=== PATIENT | female | born 1940 | race Caucasian/White ===

== ENCOUNTER 2016-08-04 07:21 | Day surgery (SDC) | payer MEDICARE ==
[2016-08-04] MEDS ORDERED: Lactated Ringers 1,000 ML IV SCH (07:45)
== END 2016-08-04 08:15 | disposition home or self-care (01) ==
LOC: FB.SDS 07:21
PROVIDERS: ATTEND Surgery
DX: Z53.8 Procedure and treatment not carried out for other reasons (principal)

== ENCOUNTER 2016-08-19 08:30 | Day surgery (SDC) | payer MEDICARE ==
[~2016-08-19 08:30] MED LIST: Lactated Ringers 1,000 ML IV SCH; Sodium Chloride 0.9% 10 ML Syringe FLUSH PRN
[2016-08-19] MEDS ORDERED: ePHEDrine 50 MG/ML SDV IV ONE (11:00)
[2016-08-19] MEDS ORDERED: fentaNYL 100 MCG/2 ML SDV IV ONE (11:00)
[2016-08-19] MEDS ORDERED: Ondansetron 4 MG/2 ML SDV IVPUSH ONE (11:00)
[2016-08-19] MEDS ORDERED: Ketorolac 30 MG/ML SDV IVPUSH ONE (11:00)
[2016-08-19] MEDS ORDERED: Dexamethasone 4 MG/ML 5 ML MDV IVPUSH ONE (11:00)
[2016-08-19] MEDS ORDERED: Albuterol 8 GM Inhaler INH ONE (11:00)
[2016-08-19] MEDS ORDERED: Propofol 200 MG/20 ML SDV IV ONE (11:00)
[2016-08-19] MEDS ORDERED: Bupivacaine 0.5% 30 ML SDV INJECT ONE (11:24)
[2016-08-19] MEDS ORDERED: Lidocaine 1% with EPINEPHrine 1:100,000 20 ML MDV INJECT ONE (11:24)
--- NOTE | 2016-08-19 11:52 | PCM.OPNOTE ---
- General Post-Op/Procedure Note Date of Surgery/Procedure: 08/19/16 Operative Procedure(s): right breast bx Findings: 4 cm mass Pre Op Diagnosis: right breast mass Post-Op Diagnosis: Same Anesthesia Technique: General ET tube, Local (10 ml 1 % lido with epi/0.5% buvipicaine) Primary Surgeon: Jose Mckeon Anesthesia Provider: Linwood Willoughby Pathology: right breast mass Complications: None Condition: Good Free Text/Narrative:: see dictation
--- NOTE | 2016-08-19 12:12 | OR ---
DATE OF OPERATION: 08/19/2016 SURGEON: Jose Mckeon MD PROCEDURE PERFORMED: Right breast biopsy. PREOPERATIVE DIAGNOSIS: Right breast mass. POSTOPERATIVE DIAGNOSIS: Right breast mass. INDICATIONS FOR PROCEDURE: This is a 76-year-old white female, who has a palpable mass at the 9 o'clock position of her right breast. Recent FNA demonstrated fibrosis and benign tissue; however, given the size of the lesion, an excisional biopsy was recommended to confirm that this was indeed benign. DESCRIPTION OF OPERATION: After an excellent general anesthetic was administered, the patient was prepped and draped in the usual sterile manner. The area over the mass was infiltrated with a 1:1 mixture of 1% lidocaine with epinephrine and 0.5% bupivacaine. A 5 cm radial incision was then made. Sharp and electrocautery dissection was carried out dissecting the mass from the surrounding tissue. Caudal, medial, and lateral axis were marked and the specimen was passed off the field and measured approximately 4 cm in diameter. The area was irrigated. Bleeding was controlled with electrocautery. The thinness of her breast tissue precluded subcu closure and the two skin edges were approximated with a running 4-0 nylon. Bulky dressing was then applied. The patient was taken to recovery room in good condition. /[id number] LUIS/[place]
[2016-08-19 14:14] VITALS: BP 125/65
== END 2016-08-19 14:10 | disposition home or self-care (01) ==
LOC: FB.SDS 08:30
PROVIDERS: ATTEND Surgery
PROC: 0HBT0ZX Excision of Right Breast, Open Approach, Diagnostic (ICD-10-PCS; principal; 2016-08-19)
DX: D05.11 Intraductal carcinoma in situ of right breast (principal); I48.1 Persistent atrial fibrillation; Z79.01 Long term (current) use of anticoagulants; Z79.899 Other long term (current) drug therapy; M19.90 Unspecified osteoarthritis, unspecified site; F03.90 Unspecified dementia, unspecified severity, without behavioral disturbance, psychotic disturbance, mood disturbance, and anxiety; E78.5 Hyperlipidemia, unspecified; M81.0 Age-related osteoporosis without current pathological fracture; Z88.1 Allergy status to other antibiotic agents; Z88.0 Allergy status to penicillin; Z88.8 Allergy status to other drugs, medicaments and biological substances
CPT/HCPCS: 00400; 19101; 88307; 88342; 88360; A9270; J1100; J1885; J2405; J2704; J3010; J7120

== ENCOUNTER 2016-12-14 14:53 | Emergency (ER) | payer MEDICARE ==
[2016-12-14] MEDS ORDERED: Acetaminophen 500 MG Tab PO ONE (15:06)
--- NOTE | 2016-12-14 15:13 | EDM.PDOC ---
ED HPI GENERAL MEDICAL PROBLEM - General Chief Complaint: Chest Pain Stated Complaint: CHEST PAIN Time Seen by Provider: 12/14/16 14:55 Source of Information: Reports: Patient, Family, Old Records History Limitations: Reports: No Limitations - History of Present Illness INITIAL COMMENTS - FREE TEXT/NARRATIVE: 76 yo female here with chest pain for the past week. Does not seem to be related to any activity. Was mild and intermittent initially, getting worse now 5/10 in severity. Has not been to her primary for this. No self tx. Mildly SOB. No nausea. No radiation. Quit smoking many yrs ago. PHx of pneumonia. Onset: Gradual Onset Date: 12/07/16 Duration: Day(s): Location: Reports: Chest Quality: Reports: Dull Severity: Mild Improves with: Reports: None Worsens with: Reports: None Associated Symptoms: Reports: Chest Pain, Shortness of Breath (mild). Denies: Cough, Diaphoresis, Fever/Chills, Loss of Appetite, Nausea/Vomiting, Rash Treatments TESTING AND REGULATING CHIEF: Reports: Other (see below) (none) whole chest Pain Score (Numeric/FACES): 5 - Related Data Allergies Allergy/AdvReac Type Severity Reaction Status Date / Time ciprofloxacin Allergy Rash Verified 12/14/16 15:01 oxybutynin Allergy UNKNOWN Verified 12/14/16 15:01 Penicillins Allergy Rash Verified 12/14/16 15:01 Sulfa (Sulfonamide Allergy Rash Verified 12/14/16 15:01 Antibiotics) Home Meds: Home Meds Albuterol [Proventil Neb Soln] 2.5 mg .XX QID PRN 06/09/16 [History] Alendronate [Fosamax] 70 mg PO Q7D@0600 06/09/16 [History] Ascorbate Calcium [Vitamin C] 1,000 mg PO DAILY 06/09/16 [History] Cholecalciferol (Vitamin D3) [Vitamin D3] 5,000 unit PO DAILY 06/09/16 [History] Flaxseed Oil [Flaxseed] 2,400 mg PO BID 06/09/16 [History] Omeprazole 20 mg PO DAILY 06/09/16 [History] Rivaroxaban [Xarelto] 20 mg PO WITHDINNER 06/09/16 [History] Sennosides/Docusate Sodium [Senna-Docusate Sodium] 2 tab PO DAILY 06/09/16 [ History] Sertraline [Zoloft] 200 mg PO DAILY 06/09/16 [History] Trospium [Sanctura] 20 mg PO BID 06/09/16 [History] Calcium Carbonate [Calcium] 600 mg PO DAILY 08/18/16 [History] Acetaminophen/HYDROcodone [[place] 325-5 MG] 1 - 2 tab PO Q6H PRN #20 tab [Rx] Hydrocodone/Acetaminophen [Hydrocodon-Acetaminophen 5-325] 1 each PO Q4HR PRN [History] Anastrozole [Arimidex] 1 mg PO DAILY 12/14/16 [History] traMADol [Ultram] 50 mg PO DAILY 12/14/16 [History] Past Medical History HEENT History: Reports: Cataract, Hard of Hearing, Impaired Vision, Other (See Below) Other HEENT History: CLEFT PALETTE Cardiovascular History: Reports: Afib Other Cardiovascular History: HYPERLIPIDEMIA Respiratory History: Reports: Asthma Other Respiratory History: USES IS AT HOME. 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 Other Musculoskeletal History: ARTROPATHY,BACKACHE Other Neuro History: TREMORS OF NERVOUS SYSTEM, DEMENTIA Psychiatric History: Reports: Dementia, Depression Hematologic History: Reports: None Immunologic History: Reports: None Oncologic (Cancer) History: Reports: None Dermatologic History: Reports: None - Infectious Disease History Infectious Disease History: Reports: Chicken Pox, Measles, Mumps - Past Surgical History HEENT Surgical History: Reports: Oral Surgery Musculoskeletal Surgical History: Reports: Arthroscopic Knee, Hip Replacement Social & Family History - Family History Family Medical History: Noncontributory - Tobacco Use Smoking Status *Q: Former Smoker Years of Tobacco use: 35 Packs/Tins Daily: 1 Second Hand Smoke Exposure: Yes - Caffeine Use Caffeine Use: Reports: Coffee, Soda - Recreational Drug Use Recreational Drug Use: No ED ROS GENERAL - Review of Systems Review Of Systems: See Below Constitutional: Denies: Fever, Chills, Night Sweats HEENT: Reports: No Symptoms Respiratory: Reports: Shortness of Breath (mild). Denies: Wheezing, Pleuritic Chest Pain, Cough, Sputum, Hemoptysis Cardiovascular: Reports: Chest Pain (5/10), Dyspnea on Exertion (slightly worse than usual), Palpitations (chronic Afib). Denies: Claudication, Edema, Lightheadedness, Orthopnea, PND, Syncope Endocrine: Reports: No Symptoms GI/Abdominal: Reports: No Symptoms : Reports: No Symptoms, Incontinence (not new) Musculoskeletal: Reports: No Symptoms Skin: Reports: No Symptoms Neurological: Reports: No Symptoms Psychiatric: Reports: No Symptoms ED EXAM, GENERAL - Physical Exam Exam: See Below Exam Limited By: No Limitations General Appearance: Alert, WD/WN, No Apparent Distress, Obese Eye Exam: Bilateral Eye: Normal Inspection Ears: Normal External Exam, Normal Canal, Hearing Grossly Normal Ear Exam: Bilateral Ear: Auricle Normal, Canal Normal Nose: Normal Inspection, Normal Mucosa, No Blood Throat/Mouth: Normal Inspection, Normal Lips, Normal Oropharynx, No Airway Compromise Head: Atraumatic, Normocephalic. No: Facial Swelling Neck: Normal Inspection Respiratory/Chest: No Respiratory Distress, Lungs Clear, Normal Breath Sounds, No Accessory Muscle Use Cardiovascular: No Edema, No JVD, Irregularly Irregular GI/Abdominal: Soft, Non-Tender, No Distention Back Exam: Normal Inspection. No: CVA Tenderness (R), CVA Tenderness (L) Extremities: Normal Inspection, Normal Range of Motion, Non-Tender, No Pedal Edema Neurological: Alert, Oriented, CN II-XII Intact, Normal Cognition, No Motor/ Sensory Deficits Psychiatric: Normal Affect, Normal Mood Skin Exam: Warm, Dry, Intact, Normal Color, No Rash Lymphatic: No Adenopathy EKG INTERPRETATION EKG Date: 12/14/16 Time: 15:00 Rhythm: A-Fib Rate (Beats/Min): 63 [place]: Normal P-Wave: Present QRS: Normal ST-T: Normal QT: Normal Comparison: NA - No Prior EKG Course - Vital Signs Text/Narrative:: CXR-no acute changes Acetaminophen 1000 mg po, Duoneb-subjective improvement Last Recorded V/S: Last Vital Signs Temp 36.9 C 12/14/16 14:53 Pulse 58 L 12/14/16 16:00 Resp 15 12/14/16 14:53 BP 103/65 12/14/16 14:53 Pulse Ox 95 12/14/16 16:00 - Orders/Labs/Meds Orders: Active Orders 24 hr Category Date Time Status Cardiac Monitoring [RC] .As Directed Care 12/14/16 14:55 Active Chest 2V [CR] Stat Exams 12/14/16 15:07 Taken UA W/MICROSCOPIC [URIN] Stat Lab 12/14/16 15:06 Uncollected EKG 12 Lead [EK] Routine Ther 12/14/16 14:55 Ordered Labs: Laboratory Tests 12/14/16 12/14/16 12/14/16 Range/Units 15:45 15:45 15:45 WBC 5.5 (4.5-12.0) X10-3/uL RBC 4.29 (3.23-5.20) x10(6)uL Hgb 13.6 (11.5-15.5) g/dL Hct 39.1 (30.0-51.3) % MCV 91.3 (80-96) fL MCH 31.7 (27.7-33.6) pg MCHC 34.7 (32.2-35.4) g/dL RDW 14.5 (11.5-15.5) % Plt Count 162 (125-369) X10(3)uL D-Dimer, Quantitative 130 (100-400) ng/mL Sodium 138 (135-145) mmol/L Potassium 3.5 (3.5-5.3) mmol/L Chloride 107 (100-110) mmol/L Carbon Dioxide 23 (23-29) mmol/L BUN 13 (8-23) mg/dL Creatinine 0.8 (0.6-1.3) mg/dL Est Cr Clr Drug Dosing 42.97 mL/min Estimated GFR (MDRD) > 60 (>60) BUN/Creatinine Ratio 16.3 (9-20) Glucose 187 H (80-116) mg/dL Calcium 9.3 (8.6-10.2) mg/dL Troponin I (0.02-0.06) NG/ML 12/14/16 Range/Units 15:45 WBC (4.5-12.0) X10-3/uL RBC (3.23-5.20) x10(6)uL Hgb (11.5-15.5) g/dL Hct (30.0-51.3) % MCV (80-96) fL MCH (27.7-33.6) pg MCHC (32.2-35.4) g/dL RDW (11.5-15.5) % Plt Count (125-369) X10(3)uL D-Dimer, Quantitative (100-400) ng/mL Sodium (135-145) mmol/L Potassium (3.5-5.3) mmol/L Chloride (100-110) mmol/L Carbon Dioxide (23-29) mmol/L BUN (8-23) mg/dL Creatinine (0.6-1.3) mg/dL Est Cr Clr Drug Dosing mL/min Estimated GFR (MDRD) (>60) BUN/Creatinine Ratio (9-20) Glucose (80-116) mg/dL Calcium (8.6-10.2) mg/dL Troponin I < 0.01 L (0.02-0.06) NG/ML Meds: Medications Discontinued Medications Generic Name Dose Route Start Last Admin Trade Name Donna PRN Reason Stop Dose Admin Acetaminophen 1,000 mg 12/14/16 15:06 12/14/16 15:12 Tylenol Extra Strength PO 12/14/16 15:07 1,000 mg ONETIME ONE Administration Albuterol/Ipratropium 3 ml 12/14/16 15:41 12/14/16 15:45 Duoneb 3.0-0.5 Mg/3 Ml NEB 12/14/16 15:42 3 ml ONETIME ONE Administration Departure - Departure Time of Disposition: 16:22 Disposition: Home, Self-Care 01 Condition: Good Clinical Impression: Bronchospasm, Hyperglycemia Forms: ED Department Discharge - My Orders Last 24 Hours: My Active Orders 12/14/16 14:55 Cardiac Monitoring [RC] .As Directed EKG 12 Lead [EK] Routine 12/14/16 15:06 UA W/MICROSCOPIC [URIN] Stat 12/14/16 15:07 Chest 2V [CR] Stat - Assessment/Plan Last 24 Hours: My Active Orders 12/14/16 14:55 Cardiac Monitoring [RC] .As Directed EKG 12 Lead [EK] Routine 12/14/16 15:06 UA W/MICROSCOPIC [URIN] Stat 12/14/16 15:07 Chest 2V [CR] Stat
[2016-12-14] MEDS ORDERED: Albuterol/Ipratropium 3.0-0.5 MG/3 ML Neb Soln NEB ONE (15:41)
[2016-12-14 16:40] VITALS: BP 102/54
--- NOTE | 2016-12-15 10:28 | CR ---
INDICATION: Short of breath, chest pain. CHEST: AP and lateral upright views of the chest 12/14/2016 were compared with 05/19/2016, revealing evidence of exogenous obesity. The heart is enlarged. The aorta is tortuous and calcified in the arch area. Overlying EKG lead snaps are noted. A definite active infiltrate or effusion was not identified. Somewhat diminished bone density is suggested, compatible with osteoporosis - correlate clinically. Slightly heavy markings at the lung bases are likely fibrotic, as they appear essentially unchanged from the previous study. IMPRESSION: No acute process. Fairly stable appearance of the chest compared with 05/19/2016. MTDD
== END 2016-12-14 16:39 | disposition home or self-care (01) ==
LOC: FB.ED 14:53
DX: J98.01 Acute bronchospasm (principal); R73.9 Hyperglycemia, unspecified; E78.5 Hyperlipidemia, unspecified; K21.9 Gastro-esophageal reflux disease without esophagitis; F32.9 Major depressive disorder, single episode, unspecified; Z98.890 Other specified postprocedural states; Z88.1 Allergy status to other antibiotic agents; Z88.8 Allergy status to other drugs, medicaments and biological substances; Z88.0 Allergy status to penicillin; Z88.2 Allergy status to sulfonamides; Z79.899 Other long term (current) drug therapy; Z87.891 Personal history of nicotine dependence
CPT/HCPCS: 36415; 71020; 80048; 84484; 85027; 85379; 93005; 94664; 99285; A9270; J7620; 99284

== ENCOUNTER 2017-06-01 16:05 | Emergency (ER) | payer MEDICARE ==
[2017-06-01 21:26] VITALS: BP 108/62
--- NOTE | 2017-06-02 10:28 | CT ---
INDICATION: 2 months of a headache, weakness, fatigue, dementia. CT HEAD WITHOUT CONTRAST: Serial contiguous 2.5 and 5-mm sections were obtained through the brain without contrast. Paranasal sinuses were well aerated. Mastoid air cells were minimally aerated and few in number. Degenerative changes are noted at the atlantoodontoid joint. No cranial abnormality was suggested. Calcifications are noted in the right vertebral artery and the internal carotid arteries. No shift of midline structures or ventricular abnormalities were identified. There is suggestion of some very minimal decreased density in the white matter, suggesting a minimal degree of microvascular disease. No other abnormal areas of density were identified - no bleeding site or hematoma was identified - no acute intracranial abnormality was suggested. IMPRESSION: 1. No acute intracranial abnormality. 2. Suggestion of minimal microvascular disease. 3. Arterial calcifications noted. If metastatic disease is suspected clinically, CT scan with IV contrast and/or MRI may be helpful. Report was called to Dr. Ochoa at 1825 hours, 06/01/2017. Total Exam DLP = 949.36 mGy-cm. MTDD
--- NOTE | 2017-06-02 10:33 | CR ---
INDICATION: Status post breast CA, tiredness, COPD. CHEST: PA and lateral views of the chest revealed the heart to be normal in size and shape. The aorta is somewhat tortuous with calcification in the arch. Findings compatible with COPD are noted, without a definite active infiltrate or effusion. Dextroconvex scoliosis at the thoracolumbar spine is noted. IMPRESSION: 1. No definite acute process. 2. COPD. 3. ASD aorta. 4. Scoliosis. Report was called to Dr. Ochoa at 1825 hours, 06/01/2017. MARLEN
--- NOTE | 2017-06-06 09:29 | ER ---
DATE SEEN: 06/01/2017 TIME SEEN: The patient was seen at 1630 hours. CHIEF COMPLAINT: Weakness, shortness of breath last 3-4 days, light rhinorrhea, occasional cough and headache. Denies fever. Has mild shortness of breath on walking 2 to 3 steps. History of bowel incontinence for a week. This is not unusual for her and she has urine incontinence also. Her granddaughter comes in once a week to do housework. notes she has mild dementia. He proudly claims he smoked "5 packs a day" for many years and, "I am healthy." He is rotund, approximately 300-pound man who does not complain of any aches and pains, but he is concerned about her history of mild dementia. She has lost several teeth. REVIEW OF SYSTEMS: 1. The patient has reflux. She uses omeprazole. 2. Depression. 3. Chronic pain. She uses tramadol. 4. Chronic obstructive lung disease with intermittent use of albuterol. 5. Fosamax for osteoporosis. 6. Arimidex for her dementia. MEDICATIONS: 1. Tramadol. 2. Sanctura. 3. Zoloft. 4. Senna and docusate. 5. Rivaroxaban. 6. Omeprazole. 7. Hydrocodone. 8. Flaxseed. 9. Vitamin D. 10.Calcium carbonate and Vitamin D. 11.Anastrozole (Arimidex). 12.Alendronate (Fosamax). ALLERGIES: Ciprofloxacin, oxybutynin, penicillin, sulfa. OTHER PAST MEDICAL HISTORY: 1. Right breast cancer resection many years ago. 2. Right total hip arthroplasty. 3. Left total knee arthroplasty. SOCIAL HISTORY: Smoked half-a-pack a day for 27 years. No history of hypothyroidism. Had cataract surgery. REVIEW OF SYSTEMS: The patient denies frequency, urgency, dysuria, hematuria. She notes she wears Attends. Has mild swelling of her ankles. PHYSICAL EXAMINATION: See nurse's notes for vital signs. Blood pressure 111/79, pulse 75, respirations 18, temperature 96.3, O2 sats 97%. CONSTITUTIONAL: The patient has many absent teeth, has an increased angularity of the jaw. She has a quiet and a very soft speech. I have to listen very closely because she talks so softly. She is mildly overweight. Her is a spokesperson for her. She is slow in speech and has fair eye contact. She is not confused, but she talks slowly and her answers come slowly. HEENT: Pupils equal, round, they do react to light. EOMs normal. Pharynx without abnormality. Mild dry mucosa. Has multiple missing teeth. NECK: No bruits in the neck. No cervical adenopathy. No thyromegaly. Neck is nontender posterior or anteriorly. No masses. No tracheal tug. LUNGS: Clear without rales, rhonchi, or wheezes. HEART: S1, S2. No irregular rate or rhythm. No murmur. ABDOMEN: Soft, nontender. No guarding. No abdominal discomfort. BACK: Without tenderness. No CVA or percussion tenderness. LOWER EXTREMITIES: Without edema. Deep tendon reflexes hypoactive in upper and lower extremities, but present. NEUROLOGICAL: Cranial nerves 2 through 12 intact. Gait appropriate. Not wide-based. Muscle strength in upper and lower extremities is good. Short-term memory is fair. Long-term memory is much better. 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 She has no evidence for metabolic abnormality. The hemoglobin is 14.4, white count 6000 with normal differential, and 4 basophils, slightly elevated. Sodium 142, potassium 4.3, chloride 107, CO2 of 29, BUN 20, creatinine 1.1. Estimated GFR is 48 (chronic kidney disease, stage III). BNP was 2181. Remainder of the TSH is 0.79, is normal. She has positive nitrites in urine, large leukocyte esterase, moderate squamous cells, many bacteria, and 40-50 wbc's. ASSESSMENT: 1. The patient has asymptomatic bacteriuria. I do not think she has a urinary tract infection. She has incontinence of urine. 2. 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 3. Chest x-ray did not reveal any masses or infiltrate. CT of the head did not demonstrate CVA or bleed. She has small-vessel changes otherwise. 4. Her speech is slightly delayed and slowed, suggests the abnormality of dementia which her notes. 5. No evidence for hypothyroidism. 6. Shortness of breath, etiology indeterminate, probably secondary to chronic obstructive lung disease and approximately 14-pack years of smoking. 7. The BNP is 2000+ and this suggests mild congestive heart failure. 8. She has incontinence of urine. 9. Has cataracts. 10.She has pain at the bottom of her feet. This suggests she has peripheral artery disease - atherosclerosis. 11.Regarding asymptomatic bacteriuria: Klebsiella on urine culture 06/03/2017- conclusion as long as she is asymptomatic do not treat. The incontinence would be the issue of UTI induced incontinence if it was acute, but the incontinence is chronic, so I still choose to not treat. Treatment may increase opportunity for more resistant organisms. PLAN: Trial of Imdur 30 mg daily. Follow up with her doctor in a week and she was informed about the results of her tests. /[id number] JENNIFER/[place]
== END 2017-06-01 18:58 | disposition home or self-care (01) ==
LOC: FB.ED 16:05
DX: G20 Parkinson's disease (principal); F02.80 Dementia in other diseases classified elsewhere, unspecified severity, without behavioral disturbance, psychotic disturbance, mood disturbance, and anxiety; R82.71 Bacteriuria; R32 Unspecified urinary incontinence; R06.02 Shortness of breath; M79.672 Pain in left foot; M79.671 Pain in right foot; Z88.1 Allergy status to other antibiotic agents; Z88.0 Allergy status to penicillin; Z88.2 Allergy status to sulfonamides; Z87.891 Personal history of nicotine dependence; Z98.49 Cataract extraction status, unspecified eye
CPT/HCPCS: 36415; 70450; 71046; 80053; 81001; 83880; 84443; 85025; 87086; 87088; 87186; 99285

== ENCOUNTER 2017-09-24 13:35 | Emergency (ER) | payer MEDICARE ==
--- NOTE | 2017-09-24 16:42 | ER ---
DATE SEEN: 09/24/2017 The patient left before seeing. She eloped. She presented with symptoms of shortness of breath, and has atrial fibrillation. The patient eloped. /[id number] JENNIFER/[place]
[2017-09-24 17:22] VITALS: BP 117/75
== END 2017-09-24 15:10 | disposition left against medical advice (07) ==
LOC: FB.ED 13:35
DX: Z53.21 Procedure and treatment not carried out due to patient leaving prior to being seen by health care provider (principal)
CPT/HCPCS: 93005

== ENCOUNTER 2018-10-17 07:48 | Day surgery (SDC) | payer MEDICARE ==
[2018-10-17] MEDS ORDERED: fentaNYL 100 MCG/2 ML SDV IV ONE (07:49)
[2018-10-17] MEDS ORDERED: Midazolam 1 MG/ML 2 ML SDV IV ONE (07:49)
[2018-10-17] MEDS ORDERED: Lactated Ringers 1,000 ML IV PRN (08:00)
[2018-10-17] MEDS: Sodium Chloride 0.9% 10 ML Syringe FLUSH PRN (08:40)
[2018-10-17 10:39] VITALS: BP 110/58
--- NOTE | 2018-10-17 14:35 | OR ---
DATE OF OPERATION: 10/17/2018 SURGEON: Karma Romero MD PREOPERATIVE DIAGNOSIS: Visually significant cataract, right eye. POSTOPERATIVE DIAGNOSIS: Visually significant cataract, right eye. PROCEDURES PERFORMED: Phacoemulsification with intraocular lens placement, right eye. ASSISTANTS: None. ANESTHESIA: Local with sedation. FINDINGS: Loose zonules. COMPLICATIONS: None. BLOOD LOSS: None. IMPLANTS: 24.5 diopter lens implanted. CDE: 9.44. DESCRIPTION OF PROCEDURE: After risks and benefits were reviewed with the patient, consent was obtained in the preoperative area, and the operative eye was marked with a surgical pen. In the preoperative area, a pledget was used to dilate the pupil consisting of a mixture of phenylephrine 10%, cyclopentolate 2%, moxifloxacin 0.5%, and bupivacaine 0.75%. The patient was taken to the operating room, where a time-out was performed, and the patient was placed under monitored anesthesia care. Topical tetracaine was used for anesthesia. The operative eye was prepped and draped for ophthalmic surgery, and the microscope was brought into position and focussed. A paracentesis incision was made, followed by injection of preservative-free 1% lidocaine into the anterior chamber, followed by injection of Viscoat into the anterior chamber. A microkeratome blade was used to make a corneal limbal incision temporarily. A cystotome was used to make the beginning of the capsulorrhexis, which was carried around 360 degrees in a curvilinear fashion using Utrata forceps. A Stone cannula with BSS was used to hydrodissect and hydro-delineate the nucleus. The nucleus was removed in a divide and conquer manner using phacoemulsification. Irrigation and aspiration were used to remove the remaining cortical material. Provisc was used to inflate the capsular bag, and a pre-loaded 24.5 diopter lens, serial number [id number], was injected into the capsular bag. A Sinskey hook was used to position and center the lens. Next, irrigation and aspiration was used to remove any remaining viscoelastic and cortical material from the anterior chamber. BSS on a cannula was used to inflate the anterior chamber and hydrate the wound. The wound was checked and found to be watertight. Drapes were removed and the eye was cleaned. A drop of brimonidine 0.15% and a drop of TobraDex was placed. The eye was shielded, and the patient was taken to the recovery room in stable condition. /[id number] DIANA/[place] CC: CINDA RICHTER MD MTDD
== END 2018-10-17 10:42 | disposition home or self-care (01) ==
LOC: FB.SDS 07:48
PROVIDERS: ATTEND Ophthalmology
DX: H25.813 Combined forms of age-related cataract, bilateral (principal); H04.123 Dry eye syndrome of bilateral lacrimal glands; H35.369 Drusen (degenerative) of macula, unspecified eye; H43.393 Other vitreous opacities, bilateral; H52.209 Unspecified astigmatism, unspecified eye; I48.1 Persistent atrial fibrillation; J45.20 Mild intermittent asthma, uncomplicated; J43.1 Panlobular emphysema; F03.91 Unspecified dementia, unspecified severity, with behavioral disturbance; K21.9 Gastro-esophageal reflux disease without esophagitis; F33.1 Major depressive disorder, recurrent, moderate; F41.9 Anxiety disorder, unspecified; G25.81 Restless legs syndrome; G89.29 Other chronic pain; M54.5 Low back pain; M51.36 Other intervertebral disc degeneration, lumbar region; M17.11 Unilateral primary osteoarthritis, right knee; M19.072 Primary osteoarthritis, left ankle and foot; M19.071 Primary osteoarthritis, right ankle and foot; Z88.0 Allergy status to penicillin; Z88.8 Allergy status to other drugs, medicaments and biological substances; Z88.1 Allergy status to other antibiotic agents; Z87.891 Personal history of nicotine dependence; Z79.01 Long term (current) use of anticoagulants; Z79.899 Other long term (current) drug therapy
CPT/HCPCS: 00142-QZ; J2250; J3010

== ENCOUNTER 2018-11-14 07:10 | Day surgery (SDC) | payer MEDICARE ==
[2018-11-14] MEDS ORDERED: fentaNYL 100 MCG/2 ML SDV IV ONE (07:11)
[2018-11-14] MEDS ORDERED: Midazolam 1 MG/ML 2 ML SDV IV ONE (07:11)
[2018-11-14] MEDS ORDERED: Lactated Ringers 1,000 ML IV PRN (07:30)
[2018-11-14] MEDS ORDERED: Sodium Chloride 0.9% 10 ML Syringe FLUSH PRN (07:30)
[2018-11-14 09:55] VITALS: BP 128/74; PULSE 66
--- NOTE | 2018-11-14 14:19 | OR ---
DATE OF OPERATION: 11/14/2018 SURGEON: Karma Romero MD PREOPERATIVE DIAGNOSIS: Visually significant cataract, left eye. POSTOPERATIVE DIAGNOSIS: Visually significant cataract, left eye. PROCEDURES PERFORMED: Phacoemulsification with intraocular lens placement, left eye. ASSISTANTS: None. ANESTHESIA: Local with sedation. COMPLICATIONS: None. BLOOD LOSS: None. IMPLANTS: Arley [id number], 24.0 diopter lens implanted. CDE: 5.07. DESCRIPTION OF PROCEDURE: After risks and benefits were reviewed with the patient, consent was obtained in the preoperative area, and the operative eye was marked with a surgical pen. In the preoperative area, a pledget was used to dilate the pupil consisting of a mixture of phenylephrine 10%, cyclopentolate 2%, moxifloxacin 0.5%, and bupivacaine 0.75%. The patient was taken to the operating room, where a time-out was performed, and the patient was placed under monitored anesthesia care. Topical tetracaine was used for anesthesia. The operative eye was prepped and draped for ophthalmic surgery, and the microscope was brought into position and focussed. A paracentesis incision was made, followed by injection of preservative-free 1% lidocaine into the anterior chamber, followed by injection of Viscoat into the anterior chamber. A microkeratome blade was used to make a corneal limbal incision temporarily. A cystotome was used to make the beginning of the capsulorrhexis, which was carried around 360 degrees in a curvilinear fashion using Utrata forceps. A Stone cannula with BSS was used to hydrodissect and hydrodelineate the nucleus. The nucleus was removed in a divide and conquer manner using phacoemulsification. Irrigation and aspiration were used to remove the remaining cortical material. Provisc was used to inflate the capsular bag, and a pre-loaded Arley AU00T0, 24.0 diopter lens, serial number [id number] was injected into the capsular bag. A Sinskey hook was used to position and center the lens. Next, irrigation and aspiration was used to remove any remaining viscoelastic and cortical material from the anterior chamber. BSS on a cannula was used to inflate the anterior chamber and hydrate the wound. The wound was checked and found to be watertight. 1 mg of Moxifloxacin was injected into the anterior chamber. Drapes were removed and the eye was cleaned. A drop of brimonidine 0.15% and a drop of TobraDex was placed. The eye was shielded, and the patient was taken to the recovery room in stable condition. /[id number] DIANA/[place] CC: LUCY Chapin
== END 2018-11-14 10:20 ==
LOC: FB.SDS 07:10
PROVIDERS: ATTEND Ophthalmology
DX: H25.12 Age-related nuclear cataract, left eye (principal); H52.4 Presbyopia; H04.123 Dry eye syndrome of bilateral lacrimal glands; H35.369 Drusen (degenerative) of macula, unspecified eye; H52.209 Unspecified astigmatism, unspecified eye; H43.393 Other vitreous opacities, bilateral; I48.1 Persistent atrial fibrillation; C50.411 Malignant neoplasm of upper-outer quadrant of right female breast; E78.5 Hyperlipidemia, unspecified; J45.909 Unspecified asthma, uncomplicated; K21.9 Gastro-esophageal reflux disease without esophagitis; G20 Parkinson's disease; F02.80 Dementia in other diseases classified elsewhere, unspecified severity, without behavioral disturbance, psychotic disturbance, mood disturbance, and anxiety; F32.9 Major depressive disorder, single episode, unspecified; Z88.0 Allergy status to penicillin; Z88.1 Allergy status to other antibiotic agents; Z88.8 Allergy status to other drugs, medicaments and biological substances; Z98.42 Cataract extraction status, left eye; Z96.1 Presence of intraocular lens; Z87.891 Personal history of nicotine dependence; Z79.01 Long term (current) use of anticoagulants; Z79.899 Other long term (current) drug therapy
CPT/HCPCS: 00142; 66984; J2250; J3010; V2632

== ENCOUNTER 2022-04-24 23:19 | Inpatient (IN) | payer MEDICARE ==
[2022-04-24] MEDS ORDERED: Sodium Chloride 0.9% 1,000 ML IV SCH (23:45)
[2022-04-25] MEDS ORDERED: Ondansetron 4 MG/2 ML SDV IVPUSH ONE (00:06)
[2022-04-25 00:35] LABS: ESTIMATED GFR 32 mL/min (>60)
[2022-04-25] MEDS ORDERED: cefTRIAXone 1 GM Vial IVPUSH STA (00:57)
[2022-04-25] MEDS ORDERED: Ondansetron 4 MG/2 ML SDV IV PRN (01:22)
[2022-04-25] MEDS: Sodium Chloride 0.9% 1,000 ML IV SCH ×2 (05:05→15:51)
[2022-04-25] MEDS: Azithromycin 500 MG in Sodium Chloride 0.9% 250 ML IV SCH (09:16)
[2022-04-25] MEDS: Acetaminophen 500 MG Tab PO SCH ×3 (13:01→20:03)
[2022-04-25] MEDS: Donepezil 10 MG Tab PO SCH (20:03)
[2022-04-25] MEDS: Carbidopa/Levodopa 25-100 MG Tab PO SCH (20:03)
[2022-04-25] MEDS: Mirtazapine 15 MG Tab PO SCH (20:03)
[2022-04-25] MEDS: VORTIOXETINE 10 MG PO SCH (20:09)
[2022-04-26] MEDS: Sodium Chloride 0.9% 1,000 ML IV SCH (01:53)
[2022-04-26 06:57] LABS: ESTIMATED GFR 50 mL/min (>60)
[2022-04-26] MEDS: cefTRIAXone 1 GM Vial IVPUSH SCH (08:51)
[2022-04-26] MEDS: Spironolactone 50 MG Tab PO SCH (08:52)
[2022-04-26] MEDS: Carbidopa/Levodopa 25-100 MG Tab PO SCH ×4 (08:52→20:14)
[2022-04-26] MEDS: Acetaminophen 500 MG Tab PO SCH ×4 (08:52→20:16)
[2022-04-26] MEDS: Furosemide 40 MG Tab PO SCH (08:52)
[2022-04-26] MEDS ORDERED: 50% Dextrose in Water 50 ML Syringe IVPUSH PRN (08:54)
[2022-04-26] MEDS ORDERED: Glucagon,Human Recombinant 1 MG Vial IM PRN (08:54)
[2022-04-26] MEDS ORDERED: Diclofenac Sodium 1% Gel 100 GM Tube TOP PRN (08:56)
[2022-04-26] MEDS ORDERED: Polyethylene Glycol 3350 Powder 17 GM Packet PO PRN (08:56)
[2022-04-26] MEDS ORDERED: Carbamide Peroxide 6.5% Otic Soln 15 ML Bottle EARBOTH PRN (08:56)
[2022-04-26] MEDS: Azithromycin 500 MG in Sodium Chloride 0.9% 250 ML IV SCH (08:57)
[2022-04-26] MEDS ORDERED: Tamoxifen 10 MG Tab PO SCH (09:00)
[2022-04-26] MEDS: Carboxymethylcellulose Sodium 0.5% Ophth Soln 15 ML Bottle EYEBOTH SCH ×2 (09:26→20:13)
[2022-04-26] MEDS: metFORMIN 1,000 MG Tab PO SCH ×2 (10:28→17:18)
[2022-04-26] MEDS: Insulin Lispro 100 Unit/ML 3 ML KwikPen SUBCUT SCH ×3 (10:29→17:44)
[2022-04-26] MEDS ORDERED: Rivaroxaban 15 MG Tab PO SCH (16:00)
[2022-04-26] MEDS: Rivaroxaban 15 MG Tab PO SCH (17:07)
[2022-04-26] MEDS: Donepezil 10 MG Tab PO SCH (20:13)
[2022-04-26] MEDS: Mirtazapine 15 MG Tab PO SCH (20:14)
[2022-04-26] MEDS: VORTIOXETINE 10 MG PO SCH (20:15)
[2022-04-27 06:26] LABS: ESTIMATED GFR 56 mL/min (>60)
[2022-04-27] MEDS: metFORMIN 1,000 MG Tab PO SCH ×2 (08:51→18:07)
[2022-04-27] MEDS: Acetaminophen 500 MG Tab PO SCH ×4 (08:52→20:21)
[2022-04-27] MEDS: Spironolactone 50 MG Tab PO SCH (08:52)
[2022-04-27] MEDS: Carboxymethylcellulose Sodium 0.5% Ophth Soln 15 ML Bottle EYEBOTH SCH ×2 (08:53→20:17)
[2022-04-27] MEDS: Carbidopa/Levodopa 25-100 MG Tab PO SCH ×4 (08:53→20:21)
[2022-04-27] MEDS: Furosemide 40 MG Tab PO SCH (08:53)
[2022-04-27] MEDS: Insulin Lispro 100 Unit/ML 3 ML KwikPen SUBCUT SCH ×3 (08:54→18:05)
[2022-04-27] MEDS ORDERED: Sodium Chloride 0.9% 10 ML Syringe FLUSH PRN (08:55)
[2022-04-27] MEDS: cefTRIAXone 1 GM Vial IVPUSH SCH (08:56)
[2022-04-27] MEDS: Azithromycin 500 MG in Sodium Chloride 0.9% 250 ML IV SCH (09:06)
[2022-04-27] MEDS: Rivaroxaban 15 MG Tab PO SCH (15:28)
[2022-04-27] MEDS: Potassium Chloride 20 MEQ Tab.ER PO SCH (20:20)
[2022-04-27] MEDS: Mirtazapine 15 MG Tab PO SCH (20:20)
[2022-04-27] MEDS: Donepezil 10 MG Tab PO SCH (20:20)
[2022-04-27] MEDS: VORTIOXETINE 10 MG PO SCH (20:22)
[2022-04-28 06:54] LABS: ESTIMATED GFR 56 mL/min (>60)
[2022-04-28] MEDS: Insulin Lispro 100 Unit/ML 3 ML KwikPen SUBCUT SCH ×3 (08:12→18:04)
[2022-04-28] MEDS: metFORMIN 1,000 MG Tab PO SCH ×2 (08:12→18:05)
[2022-04-28] MEDS: Acetaminophen 500 MG Tab PO SCH ×4 (08:23→21:10)
[2022-04-28] MEDS: Carbidopa/Levodopa 25-100 MG Tab PO SCH ×4 (08:23→21:11)
[2022-04-28] MEDS: Spironolactone 50 MG Tab PO SCH (08:23)
[2022-04-28] MEDS: Furosemide 40 MG Tab PO SCH (08:23)
[2022-04-28] MEDS: cefTRIAXone 1 GM Vial IVPUSH SCH (08:24)
[2022-04-28] MEDS: Carboxymethylcellulose Sodium 0.5% Ophth Soln 15 ML Bottle EYEBOTH SCH ×2 (08:24→21:09)
[2022-04-28] MEDS: Rivaroxaban 15 MG Tab PO SCH (15:47)
[2022-04-28] MEDS: VORTIOXETINE 10 MG PO SCH (21:08)
[2022-04-28] MEDS: Potassium Chloride 20 MEQ Tab.ER PO SCH (21:09)
[2022-04-28] MEDS: Cefdinir 300 MG Cap PO SCH (21:09)
[2022-04-28] MEDS: Donepezil 10 MG Tab PO SCH (21:10)
[2022-04-28] MEDS: Mirtazapine 15 MG Tab PO SCH (21:11)
[2022-04-29 06:42] LABS: ESTIMATED GFR 56 mL/min (>60)
[2022-04-29] MEDS: Insulin Lispro 100 Unit/ML 3 ML KwikPen SUBCUT SCH ×3 (09:02→18:27)
[2022-04-29] MEDS: metFORMIN 1,000 MG Tab PO SCH ×2 (09:03→18:16)
[2022-04-29] MEDS: Cefdinir 300 MG Cap PO SCH ×2 (09:04→20:34)
[2022-04-29] MEDS: Furosemide 40 MG Tab PO SCH (09:04)
[2022-04-29] MEDS: Carboxymethylcellulose Sodium 0.5% Ophth Soln 15 ML Bottle EYEBOTH SCH ×2 (09:04→20:34)
[2022-04-29] MEDS: Spironolactone 50 MG Tab PO SCH (09:04)
[2022-04-29] MEDS: Acetaminophen 500 MG Tab PO SCH ×4 (09:05→20:34)
[2022-04-29] MEDS: Carbidopa/Levodopa 25-100 MG Tab PO SCH ×4 (09:05→20:34)
[2022-04-29] MEDS: Rivaroxaban 15 MG Tab PO SCH (16:21)
[2022-04-29] MEDS: Donepezil 10 MG Tab PO SCH (20:34)
[2022-04-29] MEDS: Mirtazapine 15 MG Tab PO SCH (20:34)
[2022-04-29] MEDS: Potassium Chloride 20 MEQ Tab.ER PO SCH (20:34)
[2022-04-29] MEDS: VORTIOXETINE 10 MG PO SCH (20:35)
[2022-04-30] MEDS: Acetaminophen 500 MG Tab PO SCH ×4 (09:06→20:08)
[2022-04-30] MEDS: Furosemide 40 MG Tab PO SCH (09:07)
[2022-04-30] MEDS: metFORMIN 1,000 MG Tab PO SCH ×2 (09:07→17:07)
[2022-04-30] MEDS: Spironolactone 50 MG Tab PO SCH (09:07)
[2022-04-30] MEDS: Carbidopa/Levodopa 25-100 MG Tab PO SCH ×4 (09:08→20:08)
[2022-04-30] MEDS: Carboxymethylcellulose Sodium 0.5% Ophth Soln 15 ML Bottle EYEBOTH SCH ×3 (09:08→20:09)
[2022-04-30] MEDS: Cefdinir 300 MG Cap PO SCH ×2 (09:21→20:05)
[2022-04-30] MEDS ORDERED: Ondansetron 4 MG Tab.DIS PO PRN (10:55)
[2022-04-30] MEDS: Rivaroxaban 15 MG Tab PO SCH (17:05)
[2022-04-30] MEDS: VORTIOXETINE 10 MG PO SCH (20:04)
[2022-04-30] MEDS: Donepezil 10 MG Tab PO SCH (20:04)
[2022-04-30] MEDS: Potassium Chloride 20 MEQ Tab.ER PO SCH (20:04)
[2022-04-30] MEDS: Mirtazapine 15 MG Tab PO SCH (20:07)
[2022-05-01 07:06] LABS: ESTIMATED GFR 50 mL/min (>60)
[2022-05-01] MEDS: metFORMIN 1,000 MG Tab PO SCH ×2 (08:22→18:14)
[2022-05-01] MEDS: Carboxymethylcellulose Sodium 0.5% Ophth Soln 15 ML Bottle EYEBOTH SCH ×2 (08:23→20:19)
[2022-05-01] MEDS: Spironolactone 50 MG Tab PO SCH (08:23)
[2022-05-01] MEDS: Cefdinir 300 MG Cap PO SCH ×2 (08:23→20:17)
[2022-05-01] MEDS: Furosemide 40 MG Tab PO SCH (08:23)
[2022-05-01] MEDS: Acetaminophen 500 MG Tab PO SCH ×4 (08:24→20:17)
[2022-05-01] MEDS: Carbidopa/Levodopa 25-100 MG Tab PO SCH ×4 (08:24→20:17)
[2022-05-01] MEDS: Rivaroxaban 15 MG Tab PO SCH (16:02)
[2022-05-01] MEDS: Potassium Chloride 20 MEQ Tab.ER PO SCH (20:17)
[2022-05-01] MEDS: Donepezil 10 MG Tab PO SCH (20:17)
[2022-05-01] MEDS: Mirtazapine 15 MG Tab PO SCH (20:18)
[2022-05-01] MEDS: VORTIOXETINE 10 MG PO SCH (20:18)
[2022-05-02 07:26] LABS: ESTIMATED GFR 35 mL/min (>60)
[2022-05-02] MEDS: Acetaminophen 500 MG Tab PO SCH ×4 (08:56→21:25)
[2022-05-02] MEDS: Cefdinir 300 MG Cap PO SCH ×2 (08:56→21:25)
[2022-05-02] MEDS: Spironolactone 50 MG Tab PO SCH (08:56)
[2022-05-02] MEDS: Furosemide 40 MG Tab PO SCH (08:56)
[2022-05-02] MEDS: metFORMIN 1,000 MG Tab PO SCH ×2 (08:56→17:07)
[2022-05-02] MEDS: Carbidopa/Levodopa 25-100 MG Tab PO SCH ×4 (08:57→21:25)
[2022-05-02] MEDS: Carboxymethylcellulose Sodium 0.5% Ophth Soln 15 ML Bottle EYEBOTH SCH ×2 (08:57→21:24)
[2022-05-02] MEDS: Glimepiride 2 MG Tab PO SCH (08:58)
[2022-05-02] MEDS: Rivaroxaban 15 MG Tab PO SCH (16:02)
[2022-05-02] MEDS: Donepezil 10 MG Tab PO SCH (21:25)
[2022-05-02] MEDS: Mirtazapine 15 MG Tab PO SCH (21:25)
[2022-05-02] MEDS: Potassium Chloride 20 MEQ Tab.ER PO SCH (21:25)
[2022-05-02] MEDS: VORTIOXETINE 10 MG PO SCH (21:26)
[2022-05-03 07:09] LABS: ESTIMATED GFR 50 mL/min (>60)
[2022-05-03] MEDS: metFORMIN 1,000 MG Tab PO SCH ×2 (08:30→17:18)
[2022-05-03] MEDS: Furosemide 40 MG Tab PO SCH (08:31)
[2022-05-03] MEDS: Cefdinir 300 MG Cap PO SCH ×2 (08:31→20:28)
[2022-05-03] MEDS: Spironolactone 50 MG Tab PO SCH (08:31)
[2022-05-03] MEDS: Carboxymethylcellulose Sodium 0.5% Ophth Soln 15 ML Bottle EYEBOTH SCH ×2 (08:31→20:27)
[2022-05-03] MEDS: Acetaminophen 500 MG Tab PO SCH ×4 (08:32→20:30)
[2022-05-03] MEDS: Glimepiride 2 MG Tab PO SCH (08:34)
[2022-05-03] MEDS: Carbidopa/Levodopa 25-100 MG Tab PO SCH ×4 (09:32→20:29)
[2022-05-03] MEDS: Insulin Lispro 100 Unit/ML 3 ML KwikPen SUBCUT SCH (10:15)
[2022-05-03] MEDS: Rivaroxaban 15 MG Tab PO SCH (17:16)
[2022-05-03] MEDS: Donepezil 10 MG Tab PO SCH (20:26)
[2022-05-03] MEDS: Potassium Chloride 20 MEQ Tab.ER PO SCH (20:27)
[2022-05-03] MEDS: Mirtazapine 15 MG Tab PO SCH (20:28)
[2022-05-03] MEDS: VORTIOXETINE 10 MG PO SCH (20:29)
[2022-05-04] MEDS: metFORMIN 1,000 MG Tab PO SCH ×2 (08:43→18:09)
[2022-05-04] MEDS: Glimepiride 4 MG Tab PO SCH (08:43)
[2022-05-04] MEDS: Carboxymethylcellulose Sodium 0.5% Ophth Soln 15 ML Bottle EYEBOTH SCH ×2 (08:44→21:41)
[2022-05-04] MEDS: Spironolactone 50 MG Tab PO SCH (08:44)
[2022-05-04] MEDS: Cefdinir 300 MG Cap PO SCH (08:44)
[2022-05-04] MEDS: Acetaminophen 500 MG Tab PO SCH ×4 (08:44→21:47)
[2022-05-04] MEDS: Furosemide 40 MG Tab PO SCH (08:44)
[2022-05-04] MEDS: Carbidopa/Levodopa 25-100 MG Tab PO SCH ×4 (08:44→21:40)
[2022-05-04] MEDS: Rivaroxaban 15 MG Tab PO SCH (17:12)
[2022-05-04] MEDS: Donepezil 10 MG Tab PO SCH (21:40)
[2022-05-04] MEDS: Potassium Chloride 20 MEQ Tab.ER PO SCH (21:41)
[2022-05-04] MEDS: Mirtazapine 15 MG Tab PO SCH (21:42)
[2022-05-04] MEDS: VORTIOXETINE 10 MG PO SCH (21:44)
[2022-05-05 07:28] VITALS: BP 132/61; PULSE 78
[2022-05-05] MEDS: Glimepiride 4 MG Tab PO SCH (08:29)
[2022-05-05] MEDS: Carbidopa/Levodopa 25-100 MG Tab PO SCH (08:30)
[2022-05-05] MEDS: Acetaminophen 500 MG Tab PO SCH (08:30)
[2022-05-05] MEDS: metFORMIN 1,000 MG Tab PO SCH (08:30)
[2022-05-05] MEDS: Carboxymethylcellulose Sodium 0.5% Ophth Soln 15 ML Bottle EYEBOTH SCH (08:30)
[2022-05-05] MEDS: Spironolactone 50 MG Tab PO SCH (08:30)
[2022-05-05] MEDS: Furosemide 40 MG Tab PO SCH (08:30)
[2022-05-05] MEDS ORDERED: Insulin Lispro 100 Unit/ML 3 ML KwikPen SUBCUT ONE (11:35)
== END 2022-05-05 11:36 | disposition hospice, home (50) | DRG 682 ==
LOC: FB.ED 23:19 → UNDOADMIN 04-25 01:32 → FB.MS 04-25 01:32
PROVIDERS: ADMIT Emergency Medicine; ATTEND Family Medicine
DX: R53.1 Weakness (principal); N17.9 Acute kidney failure, unspecified; J18.9 Pneumonia, unspecified organism; I48.19 Other persistent atrial fibrillation; N39.0 Urinary tract infection, site not specified; E86.0 Dehydration; F41.9 Anxiety disorder, unspecified; F32.A Depression, unspecified; U09.9 Post COVID-19 condition, unspecified; G30.1 Alzheimer's disease with late onset; F02.B0 Dementia in other diseases classified elsewhere, moderate, without behavioral disturbance, psychotic disturbance, mood disturbance, and anxiety; D05.10 Intraductal carcinoma in situ of unspecified breast; E87.6 Hypokalemia; H91.90 Unspecified hearing loss, unspecified ear; E78.5 Hyperlipidemia, unspecified; F03.90 Unspecified dementia, unspecified severity, without behavioral disturbance, psychotic disturbance, mood disturbance, and anxiety; K21.9 Gastro-esophageal reflux disease without esophagitis; H54.7 Unspecified visual loss; Z96.649 Presence of unspecified artificial hip joint; Z96.659 Presence of unspecified artificial knee joint; Z88.1 Allergy status to other antibiotic agents; Z88.2 Allergy status to sulfonamides; I48.91 Unspecified atrial fibrillation; Z88.8 Allergy status to other drugs, medicaments and biological substances; Z79.84 Long term (current) use of oral hypoglycemic drugs; Z98.49 Cataract extraction status, unspecified eye; E11.9 Type 2 diabetes mellitus without complications; I10 Essential (primary) hypertension; J45.909 Unspecified asthma, uncomplicated; Z90.49 Acquired absence of other specified parts of digestive tract; Z51.5 Encounter for palliative care; Z79.01 Long term (current) use of anticoagulants; Z79.899 Other long term (current) drug therapy
CPT/HCPCS: 36415; 51702; 71045; 80048; 80053; 81001; 82947; 83880; 85025; 87086; 87088; 87186; 93005; 93010; 96361; 96374; 96375; 97161-GP; 97165-GO; 97530-GO; 99223; 99233; 99238; 99285; 99285-25; A9270-GY; J0456; J0696; J1815; J2405; J3490; J7030; J7050